=== PATIENT | female | born 2000 | race African-American/Black ===

== ENCOUNTER 2023-11-20 22:21 | Emergency (ER) | payer BC ==
[2023-11-20 22:36] VITALS: TEMP 98.2; BMI 23.6
[2023-11-20] MEDS ORDERED: LACTATED RINGERS SOLUTION 1000 ML INFUS.BAG IV ONE (23:22)
[2023-11-20 23:48] LABS: BASO % 0.6 % (0-2.0); EOS % 0.2 % (0-4.5); HEMATOCRIT 44.4 % (32.4-45.2); HEMOGLOBIN 14.9 GM/dL (10.7-15.3); MCH 31.3 pg (25.7-33.7); MCHC 33.6 g/dl (32.0-36.0); MEAN CELL VOLUME 93.2 fl (80-96); MEAN PLT VOLUME 8.6 fl (7.5-11.1); MONO % 8.7 % (3.8-10.2); NEUT % 78.5 % (42.8-82.8); PLATELET COUNT 242 10^3/uL (134-434); RBC 4.76 M/mm3 (3.60-5.2); RDW 14.1 % (11.6-15.6); WHITE BLOOD COUNT 8.7 K/mm3 (4.0-10.0)
[2023-11-21 00:13] LABS: POTASSIUM 4.3 mmol/L (3.5-5.1)
[2023-11-21 00:15] LABS: ALBUMIN 4.1 g/dl (3.4-5.0); BLOOD UREA NITROGEN 7.8 mg/dL (7-18); CALCIUM 9.5 mg/dL (8.5-10.1); MAGNESIUM 1.9 mg/dL (1.8-2.4)
[2023-11-21 00:18] LABS: CREATININE 0.8 mg/dL (0.55-1.3)
[2023-11-21 00:20] LABS: BILIRUBIN,TOTAL 0.5 mg/dL (0.2-1); TOT PROT 7.4 g/dl (6.4-8.2)
[2023-11-21] MEDS ORDERED: ONDANSETRON 4 MG/2 ML VIAL IVPUSH ONE (00:41)
[2023-11-21] MEDS ORDERED: ONDANSETRON *ODT* 4 MG TABLET ONE (00:50)
[2023-11-21] MEDS ORDERED: ACETAMINOPHEN 325 MG TABLET (FP) ONE (00:51)
[2023-11-21] MEDS: ACETAMINOPHEN 325 MG TABLET (FP) PO ONE (00:54)
[2023-11-21] MEDS: ONDANSETRON *ODT* 4 MG TABLET SL ONE (00:54)
[2023-11-21 01:27] VITALS: BP 124/77; PULSE 94; RESP 18
== END 2023-11-21 02:26 | disposition home or self-care (01) ==
LOC: JER 22:21
DX: R06.02 Shortness of breath (principal); Z20.822 Contact with and (suspected) exposure to COVID-19
CPT/HCPCS: 0241U-QW; 36415; 71046-TC-FY; 80053; 83735; 84439; 84443; 84484; 84703; 85025; 85379; 93005; 93010; 99285-25; Q0162

== ENCOUNTER 2025-04-05 00:59 | Emergency (ER) | payer BC, OTHER ==
[2025-04-05 01:10] VITALS: BP 140/94; PULSE 71; RESP 16; TEMP 97.8; BMI 25.4
== END 2025-04-05 02:10 | disposition home or self-care (01) ==
LOC: JER 00:59
DX: R07.2 Precordial pain (principal); R06.02 Shortness of breath
CPT/HCPCS: 71046-TC-FY; 93005; 93010; 99284-25